=== PATIENT | male | born 1980 | race Caucasian/White ===

== ENCOUNTER 2018-06-09 21:50 | Emergency (ER) | payer OTHER ==
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
[2018-06-09] MEDS ORDERED: HYDROCODONE/APAP 5/325 TAB PO ONE (22:03)
[2018-06-09] MEDS ORDERED: HYDROCODONE/APAP 5/325 TAB ONE (22:04)
[2018-06-09] MEDS ORDERED: KETOROLAC 30 MG/1 ML SDV IM ONE (23:10)
[2018-06-09] MEDS ORDERED: CYCLOBENZAPRINE 10MG PREPACK#3 BTL TAKEHOME ONE (23:50)
[2018-06-09] MEDS ORDERED: OXYCODONE/APAP 5/325MG PREPACK#4 BTL TAKEHOME ONE (23:52)
[2018-06-10 00:05] VITALS: BP 145/70
== END 2018-06-10 00:03 | disposition home or self-care (01) ==
DX: S16.1XXA Strain of muscle, fascia and tendon at neck level, initial encounter (principal); S39.012A Strain of muscle, fascia and tendon of lower back, initial encounter; V49.49XA Driver injured in collision with other motor vehicles in traffic accident, initial encounter; Y92.410 Unspecified street and highway as the place of occurrence of the external cause
CPT/HCPCS: J1885